=== PATIENT | female | born 1960 | race Caucasian/White ===

== ENCOUNTER → 2017-02-19 | Outpatient (CLI) | payer BC, MEDICARE | LOC: KOH-I 10:30 | DX: G90.2 Horner's syndrome (principal); J32.9 Chronic sinusitis, unspecified; I65.23 Occlusion and stenosis of bilateral carotid arteries; E04.1 Nontoxic single thyroid nodule | CPT/HCPCS: 70480; 93880 ==

== ENCOUNTER → 2017-02-20 | Outpatient (CLI) | payer BC, MEDICARE | LOC: EMI 07:30 | DX: G90.2 Horner's syndrome (principal); R90.82 White matter disease, unspecified | CPT/HCPCS: 70540; 70551 ==